=== PATIENT | female | born 1970 | race Hispanic/Latino ===

== ENCOUNTER → 2020-04-27 | Day surgery (SDC) | payer MEDICARE, OTHER ==
[2020-04-23 13:12] LABS: BASOPHILS # (AUTO) 0.1 (0.0-0.1); BASOPHILS % 1.5 % (0.0-1.0); EOSINOPHILS # (AUTO) 0.4 (0.0-0.4); EOSINOPHILS % 5.1 % (0.0-6.0); HEMOGLOBIN 10.7 g/dL (12.0-16.0); LYMPHOCYTES # (AUTO) 1.2 (1.0-3.2); LYMPHOCYTES % 15.4 % (18.0-39.1); MEAN CORPUSCULAR HEMOGLOBIN 29.3 pg (28-32); MEAN CORPUSCULAR HGB CONC 30.6 g/dL (31-35); MEAN CORPUSCULAR VOLUME 95.9 fL (81-99); MONOCYTES # (AUTO) 0.5 (0.2-0.8); MONOCYTES % 6.4 % (4.4-11.3); NEUTROPHILS # (AUTO) 5.7 (2.1-6.9); NEUTROPHILS % 71.2 % (38.7-80.0); PLATELET COUNT 156 x10e3/uL (140-360); RED BLOOD COUNT 3.65 x10e6/uL (3.6-5.1); RED CELL DISTRIBUTION WIDTH 14.2 % (11.7-14.4)
[2020-04-23 13:43] LABS: ALBUMIN 3.1 g/dL (3.5-5.0); ALBUMIN/GLOBULIN RATIO 0.7 (0.8-2.0); ANION GAP 19.6 mmol/L (8-16); CALCIUM 8.2 mg/dL (8.4-10.2); CREATININE, SERUM 6.49 mg/dL (0.57-1.11); POTASSIUM 4.6 mmol/L (3.5-5.1)
[~2020-04-27] VITALS: Ht 165.1 cm; Wt 87.1 kg
[2020-04-27] VITALS (9 sets, daily range): BP systolic 136–158; BP diastolic 61–80
[~2020-04-27] MED LIST: ALPRAZOLAM 0.5 MG TAB ONE; ASPIRIN EC81 MG PO; CALCITRIOL0.25 MCG PO; CLONIDINE HCL0.1 MG PO; DIPHENHYDRAMINE HCL 25 MG CAP ONE; FENTANYL CITRATE/PF 100MCG/2 ML INJ ONE; HEPARIN SOD/SOD CHLORIDE 2,000 ML ONE; IOPAMIDOL 370 MG/ML 200 ML INFUS..BTL INJ ONE; IRON PO; LEVOTHYROXINE88 MCG PO; LIDOCAINE HCL 2% LOCAL 20 ML VIAL ONE; LISINOPRIL10 MG PO; METOPROLOL SUCC50 MG PO; MIDAZOLAM HCL 2 MG/2 ML VIAL ONE; NIFEDIPINE ER30 M1 PO; PRORENAL QD SO1 EACH PO; SODIUM CHLORIDE 0.9% 1000ML 1,000 ML ONE; VELPHORO500 MG PO; VITAMIN D250 MCG PO
--- NOTE | 2020-04-27 13:18 | Operative Report ---
DATE OF PROCEDURE: 04/27/2020 SURGEON: Humble Mckenzie MD INDICATION: Coronary artery disease, abnormal stress test. PROCEDURES PERFORMED: 1. Ultrasound-guided access in the right radial artery with sheath placement. 2. Left heart catheterization, selective coronary angiography. 3. Deployment of right wrist TR band. 4. Conscious sedation 35 minutes. COMPLICATIONS: None. BLOOD LOSS: Minimal. RECOMMENDATIONS: Medical therapy. DESCRIPTION OF PROCEDURE: Access was obtained in the right radial artery using ultrasound guidance. A 5-Chinese sheath was placed. Coronary angiography demonstrated mild coronary artery disease 20 to 30% stenosis in all diffuse vessels. No critical stenosis or occlusion noted. LV end-diastolic pressure is normal. No gradient across the aortic valve. Right wrist TR band applied. The patient discharged home same day. Humble Mckenzie MD [facility]/MODL /[id number]
--- NOTE | 2020-04-27 13:30 | NUR ---
1330pm RECEIVING NOTE DESIGN COORDINATOR RECOVERY DEPT............................................................... Bedside report received from Maggie TINSLEY. Identifierx2. Alert oriented and appropriate, PERRLA, respirations even and unlabored to room air. Pulses x4 extremities equal and strong. Pedal pulses PT/DP X4and marked. Cap fill brisk < 3 sec.TR band air removal in progress 13cc to TR band. No gross issues pain,pallor pressure or dysrhythmia Was [facility] DR Mckenzie for surgical clearance.No fix. ok to dc now. Skin warm and dry integrity appears D/I. IV 20g to left ac site, presents healthy w/o s/s of infiltration or complaint. Abdomen soft and supple. pt offered toileting, denies need to urinate or defecate. No personal affects with patient. Family at bedside. Pt and family verbalizes understanding of POC. Currently w/o complaint of pain or need. ds/talya
--- NOTE | 2020-04-27 13:30 | NUR ---
1330p RADIAL Compression removal: Initial Cuff volume 10 cc of 13cc cuff left 1330p -5 cc Removed No hematoma/bleeding noted with normal neurovascular function. 1400p -5 cc Removed No hematoma/ bleeding noted with normal neurovascular function. Air removal completed. Stasis achieved sterile 2x2,Tegaderm, Coban dressing No hematoma, bleeding noted with normal neurovascular function. Wrist splint in place. Pt instructed on POC. Ds/Rn
--- NOTE | 2020-04-27 13:30 | NUR ---
Removed 2ml of air from right wrist TR Band. Right wrist site appears to be without signs or symptoms of active bleeding at this time. TR band in place
--- NOTE | 2020-04-27 14:45 | NUR ---
1445pm MANAGER ADMINISTRATION RECOVERY DISCHARGE NURSING NOTE Pt meets DC criteria. Rt tr band assessed for s/s of complication and presecence of hematoma. Skin warm, dry, no discolor, and pulses present. IV removed from left ac. Distal tip appears intact. VS WNL. Pt denies pain, sob, or need at this time. Family at bedside. Review of discharge paperwork and follow up instructions. verbalized understanding. Pt to wheelchair and transported to front of hospital. Transferred to private vehicle under own strength w/o incident with DC paperwork in hand. -molina/talya
== END | disposition home or self-care (01) ==
LOC: CATH LAB 10:58
PROVIDERS: ATTEND Internal Medicine Interventional Cardiology
DX: I25.10 Atherosclerotic heart disease of native coronary artery without angina pectoris (principal); E11.9 Type 2 diabetes mellitus without complications; I10 Essential (primary) hypertension; I11.0 Hypertensive heart disease with heart failure; I50.9 Heart failure, unspecified; Z01.812 Encounter for preprocedural laboratory examination; Z11.59 Encounter for screening for other viral diseases; Z79.82 Long term (current) use of aspirin; Z68.32 Body mass index [BMI] 32.0-32.9, adult; Z86.73 Personal history of transient ischemic attack (TIA), and cerebral infarction without residual deficits; Z82.49 Family history of ischemic heart disease and other diseases of the circulatory system; Z82.3 Family history of stroke
CPT/HCPCS: 36415 ×2; 76937; 80053; 81025; 82948; 85025; 93454; C1769; C1887; J2001; J2250; J3010; J7030; Q9967; U0002; 99152

== ENCOUNTER 2023-02-13 08:48 | Emergency (ER) | payer MEDICARE ==
[~2023-02-13] VITALS: Ht 165.1 cm; Wt 87.1 kg
[~2023-02-13 08:48] MED LIST changes: -ALPRAZOLAM 0.5 MG TAB ONE; -DIPHENHYDRAMINE HCL 25 MG CAP ONE; -FENTANYL CITRATE/PF 100MCG/2 ML INJ ONE; -HEPARIN SOD/SOD CHLORIDE 2,000 ML ONE; -IOPAMIDOL 370 MG/ML 200 ML INFUS..BTL INJ ONE; -LIDOCAINE HCL 2% LOCAL 20 ML VIAL ONE; -MIDAZOLAM HCL 2 MG/2 ML VIAL ONE; -SODIUM CHLORIDE 0.9% 1000ML 1,000 ML ONE
[2023-02-13 09:29] LABS: BASOPHILS # (AUTO) 0.1 (0.0-0.1); BASOPHILS % 1.5 % (0.0-1.0); EOSINOPHILS # (AUTO) 0.4 (0.0-0.4); EOSINOPHILS % 6.6 % (0.0-6.0); HEMATOCRIT 33.5 % (34.2-44.1); LYMPHOCYTES # (AUTO) 0.9 (1.0-3.2); LYMPHOCYTES % 17.5 % (18.0-39.1); MEAN CORPUSCULAR HEMOGLOBIN 27.8 pg (28-32); MEAN CORPUSCULAR HGB CONC 29.9 g/dL (31-35); MEAN CORPUSCULAR VOLUME 93.1 fL (81-99); MONOCYTES # (AUTO) 0.4 (0.2-0.8); NEUTROPHILS # (AUTO) 3.6 (2.1-6.9); NEUTROPHILS % 67.2 % (38.7-80.0); PLATELET COUNT 145 x10e3/uL (140-360); RED CELL DISTRIBUTION WIDTH 16.9 % (11.7-14.4)
[2023-02-13 09:51] LABS: INR 1.57; PROTHROMBIN TIME 19.3 seconds (11.9-14.5)
[2023-02-13 09:53] LABS: ANION GAP 16.7 mmol/L (8-16); CALCIUM 8.9 mg/dL (8.4-10.2); CREATININE, SERUM 6.65 mg/dL (0.57-1.11); MAGNESIUM 2.5 MG/DL (1.3-2.1); POTASSIUM 3.7 mmol/L (3.5-5.1)
[2023-02-13 11:28] VITALS: O2SAT 100
[2023-02-13] MEDS ORDERED: MUPIROCIN22 GM TOP (12:01)
[2023-02-13] MEDS ORDERED: CEPHALEXIN500 MG PO (12:01)
== END 2023-02-13 12:41 | disposition home or self-care (01) ==
LOC: ER 08:51
DX: S80.812A Abrasion, left lower leg, initial encounter (principal); I12.9 Hypertensive chronic kidney disease with stage 1 through stage 4 chronic kidney disease, or unspecified chronic kidney disease; E11.22 Type 2 diabetes mellitus with diabetic chronic kidney disease; N18.9 Chronic kidney disease, unspecified; Z99.2 Dependence on renal dialysis; I50.9 Heart failure, unspecified; H54.8 Legal blindness, as defined in USA; E03.9 Hypothyroidism, unspecified; I99.8 Other disorder of circulatory system
CPT/HCPCS: 36415; 80048; 83735; 85025; 85610; 85730; 93005; 93926; 93971; 99284